=== PATIENT | male | born 1945 | race Caucasian/White ===

== ENCOUNTER 2019-06-23 07:48 | Outpatient (CLI) | payer MEDICARE ==
--- NOTE | 2019-06-23 08:40 | ULT ---
Exam: Bilateral renal ultrasound HISTORY: Chronic kidney disease. Nonfunctioning left kidney. COMPARISON: None FINDINGS: Right kidney: Normal cortical echotexture. No hydronephrosis. Right kidney measurements: 12.0 x 5.6 x 5.0 cm. Left kidney: Left kidney has irregular appearance. Normal-appearing cortex is not appreciated. There does appear to be severe dilatation of the left intrarenal collecting system. Left kidney measurements 4.0 x 9.1 x 4.5 cm. Urinary bladder: Normal mucosa. Prevoid volume is 131 mL. Post void volume is 6 mL. IMPRESSION: 1. Presumed chronic changes to the left kidney with severe hydronephrosis. 2. Unremarkable right kidney. 3. No significant post void residual.
== END 2019-06-23 07:49 | disposition home or self-care (01) ==
LOC: MADULT 07:48
PROVIDERS: ATTEND Internal Medicine Nephrology
DX: N18.4 Chronic kidney disease, stage 4 (severe) (principal); N13.30 Unspecified hydronephrosis
CPT/HCPCS: 76770